=== PATIENT | female | born 1990 | race African-American/Black ===

== ENCOUNTER 2025-03-29 14:26 | Emergency (ER) | payer MEDICAID ==
[~2025-03-29] VITALS: Ht 170.2 cm; Wt 123.0 kg
[2025-03-29 14:30] VITALS: BP 115/83; PULSE 90; RESP 18; TEMP 98.5; O2SAT 99
[2025-03-29] MEDS: ACETAMINOPHEN 500MG TABLET PO ONE (15:50)
[2025-03-29] MEDS ORDERED: TRAM50TA3 MT (16:19)
== END 2025-03-29 17:00 | disposition home or self-care (01) ==
LOC: ER 14:26
DX: S82.832A Other fracture of upper and lower end of left fibula, initial encounter for closed fracture (principal); J45.909 Unspecified asthma, uncomplicated; Z88.0 Allergy status to penicillin; W19.XXXA Unspecified fall, initial encounter; Y93.89 Activity, other specified; Y92.89 Other specified places as the place of occurrence of the external cause; Y99.8 Other external cause status
CPT/HCPCS: 99283; 29515; 73610; A6449